=== PATIENT | male | born 1970 | race Two or more races ===

== ENCOUNTER 2020-08-04 23:08 | Emergency (ER) | payer MEDICAID | END 2020-08-05 00:01 | disposition left against medical advice (07) | LOC: EDBD 23:08 → MW.ED 23:08 | DX: Z53.21 Procedure and treatment not carried out due to patient leaving prior to being seen by health care provider (principal) ==

== ENCOUNTER 2020-08-19 07:40 | Emergency (ER) | payer MEDICAID ==
--- NOTE | 2020-08-19 14:54 | PCM.SN.2 ---
- Free Text/Narrative Note: Patient not seen under this account. Unknown how this account exists. Patient seen multiple times before. See dictation from appropriate account.
== END 2020-08-19 07:51 ==
LOC: MW.ED 07:40
DX: Z53.21 Procedure and treatment not carried out due to patient leaving prior to being seen by health care provider (principal)

== ENCOUNTER 2021-03-27 09:18 | Emergency (ER) | payer MEDICAID ==
[2021-03-27] MEDS ORDERED: Ondansetron 4 MG/2 ML SDV IVPUSH ONE (09:49)
[2021-03-27] MEDS ORDERED: Sodium Chloride 0.9% 1,000 ML IV ONE (09:49)
[2021-03-27] MEDS ORDERED: Ketorolac 30 MG/ML SDV IVPUSH ONE (09:49)
[2021-03-27] MEDS ORDERED: Sodium Chloride 0.9% 10 ML Syringe FLUSH PRN (09:49)
[2021-03-27] MEDS ORDERED: Sodium Chloride 0.9% 2.5 ML Syringe FLUSH PRN (09:49)
[2021-03-27 10:29] LABS: BLOOD UREA NITROGEN,BUN 11 mg/dL (7.0-18.0); CARBON DIOXIDE,CO2 22.1 mmol/L (21.0-32.0); CHLORIDE,CL 86 mmol/L (98-107); GLUCOSE RANDOM 178 mg/dL (74-106); LIPASE 116 U/L (73-393); POTASSIUM,K 3.9 mmol/L (3.5-5.1); SODIUM,NA 121 mmol/L (136-148)
[2021-03-27 10:42] LABS: CORONAVIRUS COVID-19 NAA NEGATIVE (NEGATIVE); INFLUENZA A NAA NEGATIVE (NEGATIVE); INFLUENZA B NAA NEGATIVE (NEGATIVE)
[2021-03-27] MEDS ORDERED: Magnesium Sulfate/Water 2 GM in Premix Bag 1 BAG IV ONE (10:54)
[2021-03-27] MEDS ORDERED: Calcium Carbonate 500 MG Tab.Chew PO ONE (11:00)
[2021-03-27] MEDS ORDERED: Acetaminophen 325 MG Tab PO ONE (11:11)
[2021-03-27] MEDS ORDERED: Metoclopramide 10 MG/2 ML SDV IVPUSH ONE (11:12)
== END 2021-03-27 12:46 | disposition home or self-care (01) ==
LOC: MW.ED 09:18
DX: R10.10 Upper abdominal pain, unspecified (principal); R74.01 Elevation of levels of liver transaminase levels; E83.51 Hypocalcemia; E83.42 Hypomagnesemia; I10 Essential (primary) hypertension; E11.9 Type 2 diabetes mellitus without complications; Z79.4 Long term (current) use of insulin; Z79.899 Other long term (current) drug therapy; Z20.822 Contact with and (suspected) exposure to COVID-19
CPT/HCPCS: 0240U; 36415; 71045; 80053; 83690; 83735; 85025; 96365; 96375; 99284; A9270; J1885; J2405; J2765; J3475; J7030

== ENCOUNTER 2021-04-08 15:31 | Inpatient (IN) | payer MEDICAID ==
[2021-04-08] MEDS ORDERED: Ondansetron 4 MG/2 ML SDV IVPUSH ONE (16:18)
[2021-04-08] MEDS ORDERED: Famotidine 20 MG Tab PO ONE (16:18)
[2021-04-08] MEDS ORDERED: Aspirin 81 MG Tab.Chew PO ONE (16:18)
[2021-04-08 17:31] LABS: BLOOD UREA NITROGEN,BUN 14 mg/dL (7.0-18.0); CARBON DIOXIDE,CO2 25.7 mmol/L (21.0-32.0); CHLORIDE,CL 85 mmol/L (98-107); GLUCOSE RANDOM 379 mg/dL (74-106); LIPASE 158 U/L (73-393)
[2021-04-08 17:39] LABS: SODIUM,NA 114 mmol/L (136-148)
[2021-04-08] MEDS ORDERED: Sodium Chloride 0.9% 1,000 ML IV ONE (18:22)
[2021-04-08] MEDS ORDERED: chlordiazePOXIDE 25 MG Cap PO ONE (18:23)
[2021-04-08] MEDS: Sodium Chloride 0.9% 1,000 ML IV SCH ×2 (19:40→20:33)
[2021-04-08] MEDS ORDERED: Iopamidol 755 MG/ML 500 ML Multipack Bottle IVPUSH ONE (20:11)
[2021-04-08] MEDS ORDERED: Dextrose 5%-Lactated Ringers 1,000 ML IV SCH (20:30)
[2021-04-08] MEDS ORDERED: Thiamine 100 MG in Sodium Chloride 0.9% 100 ML IV ONE (20:32)
[2021-04-08] MEDS ORDERED: Thiamine 200 MG/2 ML MDV ONE (20:53)
[2021-04-08 21:35] LABS: CARBON DIOXIDE,CO2 24.7 mmol/L (21.0-32.0); POTASSIUM,K 4.1 mmol/L (3.5-5.1)
[2021-04-09] MEDS ORDERED: Metoprolol Tartrate 25 MG Tab PO SCH (00:09)
[2021-04-09] MEDS ORDERED: Acetaminophen 500 MG Tab PO ONE (00:10)
[2021-04-09] MEDS: Enoxaparin 40 MG/0.4 ML Syringe SUBCUT SCH ×2 (00:24→22:15)
[2021-04-09] MEDS: Codeine/guaiFENesin 10-100 MG/5 ML Syrup 5 ML Cup PO PRN ×3 (00:25→20:19)
[2021-04-09] MEDS: Benzonatate 100 MG Cap PO PRN ×3 (00:25→22:18)
[2021-04-09] MEDS: Insulin Glargine,Human Rec. Analog 100 Units/ML 3 ML Pen SUBCUT SCH ×2 (00:28→20:37)
[2021-04-09] MEDS: Sodium Chloride 0.9% 1,000 ML IV SCH ×2 (00:57→10:55)
[2021-04-09 01:35] LABS: CARBON DIOXIDE,CO2 26.1 mmol/L (21.0-32.0); POTASSIUM,K 4.6 mmol/L (3.5-5.1)
[2021-04-09] MEDS ORDERED: VANCOmycin 2 GM/400 ML 2 GM in Premix Bag 1 BAG IV SCH (03:00)
[2021-04-09] MEDS: Cefepime 2 GM in Premix Bag 1 BAG IV SCH ×3 (03:18→22:14)
[2021-04-09] MEDS: LORazepam 2 MG/ML SDV IVPUSH PRN ×2 (05:30→22:43)
[2021-04-09 06:39] LABS: CARBON DIOXIDE,CO2 26.4 mmol/L (21.0-32.0); POTASSIUM,K 4.5 mmol/L (3.5-5.1)
[2021-04-09] MEDS ORDERED: Lactated Ringers 1,000 ML IV ONE (06:44)
[2021-04-09] MEDS ORDERED: Thiamine 200 MG/2 ML MDV IVPUSH SCH (09:00)
[2021-04-09] MEDS: Lactulose Soln 10 GM/15 ML 15 ML UD Cup PO SCH ×2 (09:20→20:19)
[2021-04-09] MEDS: Folic Acid 1 MG Tab PO SCH (09:20)
[2021-04-09] MEDS: Metoprolol Tartrate 25 MG Tab PO SCH ×2 (09:27→20:19)
[2021-04-09] MEDS ORDERED: Lactated Ringers 500 ML IV ONE ×3 (09:30→17:51)
[2021-04-09] MEDS: Rifaximin 550 MG Tab PO SCH ×2 (09:56→20:37)
[2021-04-09 10:26] LABS: CARBON DIOXIDE,CO2 25.5 mmol/L (21.0-32.0); POTASSIUM,K 4.5 mmol/L (3.5-5.1)
[2021-04-09] MEDS ORDERED: Metoprolol Succinate 25 MG Tab.ER PO SCH (11:15)
[2021-04-09] MEDS ORDERED: 50% Dextrose in Water 50 ML Syringe IVPUSH PRN (12:49)
[2021-04-09] MEDS ORDERED: Glucagon,Human Recombinant 1 MG Vial IM PRN (12:49)
[2021-04-09] MEDS: Insulin Aspart 100 Units/ML 3 ML Pen SUBCUT SCH ×2 (13:59→18:42)
[2021-04-09 15:20] LABS: CARBON DIOXIDE,CO2 24.1 mmol/L (21.0-32.0); POTASSIUM,K 4.8 mmol/L (3.5-5.1)
[2021-04-09] MEDS ORDERED: Sodium Chloride 0.9% 1,000 ML IV SCH (17:00)
[2021-04-09 18:55] LABS: CARBON DIOXIDE,CO2 22.5 mmol/L (21.0-32.0); POTASSIUM,K 4.7 mmol/L (3.5-5.1)
[2021-04-09] MEDS ORDERED: Sodium Chloride 0.9% 500 ML IV ONE (20:55)
[2021-04-09] MEDS: Acetaminophen 325 MG Tab PO PRN (22:42)
[2021-04-10 00:46] LABS: CARBON DIOXIDE,CO2 24.2 mmol/L (21.0-32.0); POTASSIUM,K 4.7 mmol/L (3.5-5.1)
[2021-04-10] MEDS: VANCOmycin 2 GM/400 ML 2 GM in Premix Bag 1 BAG IV SCH (03:38)
[2021-04-10] MEDS: Codeine/guaiFENesin 10-100 MG/5 ML Syrup 5 ML Cup PO PRN ×3 (03:38→17:47)
[2021-04-10 07:49] LABS: CARBON DIOXIDE,CO2 21.5 mmol/L (21.0-32.0); POTASSIUM,K 4.3 mmol/L (3.5-5.1)
[2021-04-10] MEDS: Lactulose Soln 10 GM/15 ML 15 ML UD Cup PO SCH ×2 (08:28→20:09)
[2021-04-10] MEDS: Folic Acid 1 MG Tab PO SCH (08:28)
[2021-04-10] MEDS: Metoprolol Tartrate 25 MG Tab PO SCH ×2 (08:28→20:09)
[2021-04-10] MEDS: Benzonatate 100 MG Cap PO PRN ×2 (08:29→17:47)
[2021-04-10] MEDS: Rifaximin 550 MG Tab PO SCH ×2 (08:30→20:12)
[2021-04-10] MEDS: Insulin Aspart 100 Units/ML 3 ML Pen SUBCUT SCH ×3 (08:50→17:50)
[2021-04-10] MEDS: Cefepime 2 GM in Premix Bag 1 BAG IV SCH ×2 (10:06→21:31)
[2021-04-10] MEDS: Thiamine 200 MG/2 ML MDV IVPUSH SCH (11:21)
[2021-04-10 13:03] LABS: CARBON DIOXIDE,CO2 21.9 mmol/L (21.0-32.0); POTASSIUM,K 4.5 mmol/L (3.5-5.1)
[2021-04-10 19:31] LABS: CARBON DIOXIDE,CO2 19.6 mmol/L (21.0-32.0); POTASSIUM,K 4.4 mmol/L (3.5-5.1)
[2021-04-10] MEDS: Insulin Glargine,Human Rec. Analog 100 Units/ML 3 ML Pen SUBCUT SCH (20:09)
[2021-04-10] MEDS: Acetaminophen 325 MG Tab PO PRN (20:52)
[2021-04-10] MEDS: LORazepam 2 MG/ML SDV IVPUSH PRN (20:53)
[2021-04-10] MEDS ORDERED: Magnesium Sulfate/Water 2 GM in Premix Bag 1 BAG IV ONE (21:01)
[2021-04-10] MEDS: Enoxaparin 40 MG/0.4 ML Syringe SUBCUT SCH (22:41)
[2021-04-11 01:04] LABS: CARBON DIOXIDE,CO2 19.7 mmol/L (21.0-32.0); POTASSIUM,K 4.4 mmol/L (3.5-5.1)
[2021-04-11] MEDS ORDERED: Sodium Chloride 1 GM Tab PO ONE (01:38)
[2021-04-11] MEDS: VANCOmycin 2 GM/400 ML 2 GM in Premix Bag 1 BAG IV SCH (03:43)
[2021-04-11] MEDS: Codeine/guaiFENesin 10-100 MG/5 ML Syrup 5 ML Cup PO PRN ×2 (04:57→23:23)
[2021-04-11] MEDS: Benzonatate 100 MG Cap PO PRN (04:57)
[2021-04-11] MEDS: Rifaximin 550 MG Tab PO SCH ×2 (08:10→20:14)
[2021-04-11] MEDS: Metoprolol Tartrate 25 MG Tab PO SCH (08:10)
[2021-04-11] MEDS: Folic Acid 1 MG Tab PO SCH (08:10)
[2021-04-11] MEDS: Lactulose Soln 10 GM/15 ML 15 ML UD Cup PO SCH ×2 (08:10→20:14)
[2021-04-11] MEDS: Thiamine 200 MG/2 ML MDV IVPUSH SCH (08:11)
[2021-04-11 08:34] LABS: CARBON DIOXIDE,CO2 20.2 mmol/L (21.0-32.0); POTASSIUM,K 4.5 mmol/L (3.5-5.1)
[2021-04-11] MEDS: Insulin Aspart 100 Units/ML 3 ML Pen SUBCUT SCH ×3 (09:00→17:19)
[2021-04-11] MEDS: Doxycycline 100 MG Cap PO SCH ×2 (09:03→20:14)
[2021-04-11] MEDS: LORazepam 2 MG/ML SDV IVPUSH PRN ×2 (11:43→21:13)
[2021-04-11 18:24] LABS: CARBON DIOXIDE,CO2 18.2 mmol/L (21.0-32.0); POTASSIUM,K 4.2 mmol/L (3.5-5.1)
[2021-04-11] MEDS ORDERED: Metoprolol Tartrate 50 MG Tab PO SCH (20:00)
[2021-04-11] MEDS: Insulin Glargine,Human Rec. Analog 100 Units/ML 3 ML Pen SUBCUT SCH (20:14)
[2021-04-12 01:10] LABS: CARBON DIOXIDE,CO2 18.6 mmol/L (21.0-32.0); POTASSIUM,K 4.4 mmol/L (3.5-5.1)
[2021-04-12] MEDS: Heparin Sodium 5,000 Units/ML Vial SUBCUT SCH ×3 (05:35→21:49)
[2021-04-12 06:02] LABS: CARBON DIOXIDE,CO2 19.2 mmol/L (21.0-32.0); POTASSIUM,K 4.2 mmol/L (3.5-5.1)
[2021-04-12] MEDS: Benzonatate 100 MG Cap PO PRN (07:48)
[2021-04-12] MEDS: Phenol 1.4% Oral Spray 177 ML Bottle MUCMEM PRN ×2 (07:48→22:04)
[2021-04-12] MEDS: Insulin Aspart 100 Units/ML 3 ML Pen SUBCUT SCH ×3 (08:12→16:57)
[2021-04-12] MEDS: Lactulose Soln 10 GM/15 ML 15 ML UD Cup PO SCH ×2 (09:03→21:49)
[2021-04-12] MEDS: Folic Acid 1 MG Tab PO SCH (09:03)
[2021-04-12] MEDS: Metoprolol Tartrate 50 MG Tab PO SCH ×2 (09:04→21:48)
[2021-04-12] MEDS: Thiamine 200 MG/2 ML MDV IVPUSH SCH (09:05)
[2021-04-12] MEDS: Rifaximin 550 MG Tab PO SCH ×2 (09:45→21:48)
[2021-04-12] MEDS ORDERED: Magnesium Oxide 400 MG Tab PO ONE (11:15)
[2021-04-12] MEDS: Codeine/guaiFENesin 10-100 MG/5 ML Syrup 5 ML Cup PO PRN (16:58)
[2021-04-12] MEDS: Insulin Glargine,Human Rec. Analog 100 Units/ML 3 ML Pen SUBCUT SCH (21:52)
[2021-04-12] MEDS: Acetaminophen 325 MG Tab PO PRN (22:15)
[2021-04-13] MEDS: Codeine/guaiFENesin 10-100 MG/5 ML Syrup 5 ML Cup PO PRN (03:01)
[2021-04-13] MEDS: Phenol 1.4% Oral Spray 177 ML Bottle MUCMEM PRN ×2 (03:02→15:16)
[2021-04-13] MEDS: Heparin Sodium 5,000 Units/ML Vial SUBCUT SCH ×3 (05:32→22:33)
[2021-04-13 07:16] LABS: CARBON DIOXIDE,CO2 17.2 mmol/L (21.0-32.0); POTASSIUM,K 4.3 mmol/L (3.5-5.1)
[2021-04-13] MEDS: Rifaximin 550 MG Tab PO SCH ×2 (09:10→20:12)
[2021-04-13] MEDS: Folic Acid 1 MG Tab PO SCH (09:10)
[2021-04-13] MEDS: Metoprolol Tartrate 50 MG Tab PO SCH ×2 (09:11→20:09)
[2021-04-13] MEDS: Thiamine 200 MG/2 ML MDV IVPUSH SCH (09:12)
[2021-04-13] MEDS: Lactulose Soln 10 GM/15 ML 15 ML UD Cup PO SCH ×2 (09:12→20:12)
[2021-04-13] MEDS: Insulin Aspart 100 Units/ML 3 ML Pen SUBCUT SCH ×3 (09:15→17:28)
[2021-04-13] MEDS ORDERED: amLODIPine 5 MG Tab PO SCH (10:15)
[2021-04-13] MEDS ORDERED: Lactated Ringers 1,000 ML IV SCH (11:45)
[2021-04-13] MEDS ORDERED: Amoxicillin/Clavulanate K 875-125 MG Tab PO SCH (12:00)
[2021-04-13] MEDS: Amoxicillin/Clavulanate K 875-125 MG Tab PO SCH ×2 (14:23→20:12)
[2021-04-13] MEDS ORDERED: Labetalol 100 MG/20 ML MDV IVPUSH ONE (16:50)
[2021-04-13] MEDS: Polyethylene Glycol 3350 Powder 17 GM Packet PO SCH (20:12)
[2021-04-13] MEDS: Insulin Glargine,Human Rec. Analog 100 Units/ML 3 ML Pen SUBCUT SCH (20:14)
[2021-04-14] MEDS: Acetaminophen 325 MG Tab PO PRN (06:06)
[2021-04-14] MEDS: Phenol 1.4% Oral Spray 177 ML Bottle MUCMEM PRN (06:07)
[2021-04-14] MEDS: Heparin Sodium 5,000 Units/ML Vial SUBCUT SCH ×2 (06:09→14:44)
[2021-04-14 06:14] LABS: CARBON DIOXIDE,CO2 18.5 mmol/L (21.0-32.0); POTASSIUM,K 4.4 mmol/L (3.5-5.1)
[2021-04-14] MEDS ORDERED: Lactated Ringers 1,000 ML IV SCH (07:00)
[2021-04-14] MEDS: Lactulose Soln 10 GM/15 ML 15 ML UD Cup PO SCH (08:17)
[2021-04-14] MEDS: Amoxicillin/Clavulanate K 875-125 MG Tab PO SCH (08:17)
[2021-04-14] MEDS: Metoprolol Tartrate 50 MG Tab PO SCH (08:19)
[2021-04-14] MEDS: Thiamine 200 MG/2 ML MDV IVPUSH SCH (08:20)
[2021-04-14] MEDS: Folic Acid 1 MG Tab PO SCH (08:20)
[2021-04-14] MEDS: Polyethylene Glycol 3350 Powder 17 GM Packet PO SCH (08:20)
[2021-04-14] MEDS: Insulin Aspart 100 Units/ML 3 ML Pen SUBCUT SCH ×2 (08:21→14:43)
[2021-04-14] MEDS ORDERED: amLODIPine 5 MG Tab PO SCH (09:00)
[2021-04-14] MEDS: Rifaximin 550 MG Tab PO SCH (09:37)
== END 2021-04-14 18:00 | disposition home or self-care (01) | DRG 177 ==
LOC: MW.ED 15:31 → MW.ICU 21:43 → MW.MS 04-12 14:07
PROVIDERS: ADMIT Internal Medicine; ATTEND Internal Medicine
DX: U07.1 COVID-19 (principal); J12.82 Pneumonia due to coronavirus disease 2019; N17.0 Acute kidney failure with tubular necrosis; E87.1 Hypo-osmolality and hyponatremia; F10.239 Alcohol dependence with withdrawal, unspecified; E11.9 Type 2 diabetes mellitus without complications; M54.9 Dorsalgia, unspecified; K74.60 Unspecified cirrhosis of liver; I10 Essential (primary) hypertension; E11.621 Type 2 diabetes mellitus with foot ulcer; R74.01 Elevation of levels of liver transaminase levels; Z79.4 Long term (current) use of insulin; Z79.899 Other long term (current) drug therapy; L97.509 Non-pressure chronic ulcer of other part of unspecified foot with unspecified severity; E11.65 Type 2 diabetes mellitus with hyperglycemia
CPT/HCPCS: 36415; 71045; 71275; 80048; 80053; 80307; 81001; 82436; 82570; 83690; 83935; 84300; 84484; 85025; 85379; 87635; 93005; 96365; 96375; 99285; A9270 ×3; J2405; J3411; J7030 ×3; J7121; Q9967; 70490; 70490-26; 73630-26-LT; 73630-LT; 74176; 74176-26; 82009; 82550; 82947; 83735; 83930; 84100; 85610; 87040; 87070; 87651-QW; J0692; J1644; J1650; J1815-GY; J2060; J3370; J3475; J3490; J7120; U0002